=== PATIENT | female | born 1985 | race Caucasian/White ===

== ENCOUNTER 2022-03-04 17:34 | Emergency (ER) | payer BC ==
[2022-03-04] MEDS ORDERED: guaiFENesin/Codeine Phosphate 100 mg/10 mg 5 ml UD Cup ONE (17:55)
[2022-03-04] MEDS ORDERED: Ondansetron ODT 4 MG TAB ONE (17:55)
== END 2022-03-04 18:00 | disposition home or self-care (01) ==
LOC: MADERS 17:34
DX: J11.1 Influenza due to unidentified influenza virus with other respiratory manifestations (principal); I10 Essential (primary) hypertension; E78.00 Pure hypercholesterolemia, unspecified
CPT/HCPCS: 71045; Q0162